=== PATIENT | male | born 1985 | race Asian ===

== ENCOUNTER 2023-07-15 16:11 | Inpatient (IN) | payer MEDICAID ==
[~2023-07-15] VITALS: Ht 170.2 cm; Wt 66.7 kg
[2023-07-15] MEDS ORDERED: ZOLPIDEM TARTRATE 10 MG TABLET PO PRN (22:45)
[2023-07-15 23:59] VITALS: BP 108/63; PULSE 88; RESP 16; TEMP 98; O2SAT 98
[2023-07-16] MEDS ORDERED: INFLUENZA VIRUS VACCINE QVS 2023-24 (6MO+)/PF 60 MCG/0.5 ML SYRINGE IM. ONE (02:15)
[2023-07-16] MEDS ORDERED: BACITRACIN 28 GM OINTMENT TP PRN (05:30)
[2023-07-16] MEDS ORDERED: OMEPRAZOLE 20 MG CAPSULE PO PRN (05:30)
[2023-07-16] MEDS ORDERED: ONDANSETRON HCL 4 MG TABLET PO PRN (05:30)
[2023-07-16] MEDS ORDERED: CloNIDine HCL 0.1 MG TABLET PO PRN (05:30)
[2023-07-16] MEDS ORDERED: DOCUSATE SODIUM 100 MG CAPSULE PO PRN (05:30)
[2023-07-16] MEDS ORDERED: PETROLATUM,WHITE 28 GM JELLY TP PRN (05:30)
[2023-07-16] MEDS ORDERED: ALBUTEROL SULFATE HFA 90 MCG/PUFF 8 GM INHALER IH PRN (05:30)
[2023-07-16] MEDS ORDERED: MAG HYDROX/ALUMINUM HYD/SIMETH ES 30 ML SUSPENSION UDCUP PO PRN (05:30)
[2023-07-16] MEDS ORDERED: IBUPROFEN 600 MG TABLET PO PRN (05:30)
[2023-07-16] MEDS ORDERED: BENZOCAINE/MENTHOL LOZENGE PO PRN (05:30)
[2023-07-16] MEDS ORDERED: LOPERAMIDE HCL 2 MG CAPSULE PO PRN (05:30)
[2023-07-16] MEDS ORDERED: ACETAMINOPHEN 325 MG TABLET PO PRN (05:30)
[2023-07-16] MEDS ORDERED: MAGNESIUM HYDROXIDE SUSPENSION 30 ML UDCUP PO PRN (05:30)
[2023-07-16] MEDS: LORazepam 2 MG TABLET PO PRN (07:56)
[2023-07-16] MEDS: HALOPERIDOL 5 MG TABLET PO PRN (07:56)
[2023-07-16 08:29] LABS: BASOPHILS % (AUTO) 0.4 % (0.0-2.0); HEMATOCRIT 41.7 % (41-53); HEMOGLOBIN 13.2 g/dL (13.5-17.5); LYMPHOCYTES # (AUTO) 1.6 K/uL (1.0-4.8); LYMPHOCYTES % (AUTO) 18.2 % (22.0-44.0); MEAN CORPUSCULAR HEMOGLOBIN 23.4 pg (26.0-34.0); MEAN CORPUSCULAR HGB CONC 31.6 G/dL (31.0-37.0); MEAN CORPUSCULAR VOLUME 74 fL (80-100); MONOCYTES # (AUTO) 0.3 K/uL (0.1-1.0); MONOCYTES % (AUTO) 3.4 % (2.0-9.0); NEUTROPHILS # (AUTO) 6.8 K/uL (1.8-7.7); PLATELET COUNT (AUTO) 284 K/uL (150-450); RED BLOOD CELL COUNT(AUTO) 5.63 MIL/uL (4.50-5.90); RED CELL DISTRIBUTION WIDTH 15.4 % (11.5-14.5); WHITE BLOOD COUNT (AUTO) 8.8 K/uL (4.5-11.0)
[2023-07-16 08:31] VITALS: BP 101/60; PULSE 94; RESP 16; TEMP 97.6; O2SAT 98
[2023-07-16 09:22] LABS: ALANINE AMINOTRANSFERASE 25 U/L (12-78); ALBUMIN 3.4 g/dL (3.4-5.0); ALKALINE PHOSPHATASE 62 U/L (46-116); ANION GAP 3 mmol/L (8-16); ASPARTATE AMINOTRANSFERASE 18 U/L (15-37); BILIRUBIN,TOTAL 0.4 mg/dL (0.1-1.0); CALCIUM, TOTAL 8.6 mg/dL (8.8-10.5); CARBON DIOXIDE 33 mmol/L (22-29); CHLORIDE 105 mmol/L (98-107); CHOL/HDL RATIO 2.4 (4.2-7.3); CHOLESTEROL 162 mg/dL (131-200); CREATININE 0.75 mg/dL (0.60-1.30); FREE T4 (FREE THYROXINE) 1.01 ng/dL (0.76-1.46); GLOMERULAR FILTR. RATE CALC > 60 mL/min (>60); GLUCOSE,RANDOM 77 mg/dL (70-110); HDL CHOLESTEROL 68 mg/dL (40-60); LDL CHOL (CALC.) 83 mg/dL (0-130); POTASSIUM 4.1 mmol/L (3.5-5.1); SODIUM SERUM 141 mmol/L (136-145); T4 (THYROXINE) 6.9 mcg/dL (4.7-13.3); THYROID STIMULATING HORMONE 0.22 uIU/mL (0.36-3.74); TOTAL PROTEIN, SERUM 6.6 g/dL (6.4-8.2); TRIGLYCERIDES 56 mg/dL (15-150); UREA NITROGEN, BLOOD 15 mg/dL (7-18)
[2023-07-16 10:26] LABS: RBC MORPHOLOGY COMMENT ABNORMAL RBC MORPH
[2023-07-16 11:22] LABS: HEMOGLOBIN A1C 4.9 % (3.8-5.6)
[2023-07-16] MEDS: QUEtiapine FUMARATE 300 MG TABLET PO SCH (21:13)
[2023-07-16 23:30] VITALS: RESP 18
[2023-07-17 16:14] VITALS: BP 106/61; PULSE 78; RESP 17; TEMP 98.2; O2SAT 98
[2023-07-17] MEDS: HALOPERIDOL 5 MG TABLET PO PRN (19:34)
[2023-07-17] MEDS: LORazepam 2 MG TABLET PO PRN (19:34)
[2023-07-17] MEDS: QUEtiapine FUMARATE 300 MG TABLET PO SCH (20:10)
[2023-07-17 21:09] VITALS: BP 103/65; PULSE 82; RESP 18; TEMP 98.1; O2SAT 99
[2023-07-18 08:07] VITALS: BP 121/55; PULSE 87; RESP 16; TEMP 97.6
[2023-07-18] MEDS: QUEtiapine FUMARATE 300 MG TABLET PO SCH (20:15)
[2023-07-18 20:30] VITALS: RESP 18
[2023-07-19 08:37] LABS: APPEARANCE,URINE HAZY (CLEAR); BILIRUBIN,URINE NEGATIVE (NEGATIVE); COLOR,URINE YELLOW (YELLOW); GLUCOSE, URINE (UA) NEGATIVE (NEGATIVE); KETONES,URINE NEGATIVE (NEGATIVE); LEUKOCYTE ESTERASE ,URINE SMALL (NEGATIVE); NITRATE,URINE NEGATIVE (NEGATIVE); OCCULT BLOOD,URINE NEGATIVE (NEGATIVE); PH,URINE 6.5 (5.0-8.0); PH,URINE DRUG SCREEN 6.5 (5.0-8.0); PROTEIN,URINE TRACE mg/dL (NEGATIVE); UROBILINOGEN,URINE <=1.0 mg/dL (<=1.0)
[2023-07-19 08:41] LABS: ALCOHOL, URINE DRUG SCREEN NEGATIVE (NEGATIVE); AMPHET/METH SCREEN,URINE NEGATIVE (NEGATIVE); BARBITURATE SCREEN, URINE NEGATIVE (NEGATIVE); BENZODIAZEPINES SCREEN,URINE NEGATIVE (NEGATIVE); CANNABINOID SCREEN,URINE NEGATIVE (NEGATIVE); COCAINE SCREEN,URINE NEGATIVE (NEGATIVE); METHADONE SCREEN, URINE NEGATIVE (NEGATIVE); OPIATE SCREEN,URINE NEGATIVE (NEGATIVE); PHENCYCLIDINE SCREEN,URINE NEGATIVE (NEGATIVE)
[2023-07-19 09:05] LABS: BACTERIA,URINE None Seen /HPF (None Seen); RBC,URINE None Seen /HPF (0-2); SQUAMOUS EPITHELIAL CELL,UR Moderate /LPF (None Seen)
[2023-07-19 09:06] LABS: CALCIUM OXALATE CRYSTALS,UR Rare /LPF (None Seen)
[2023-07-19 09:22] VITALS: BP 106/60; PULSE 83; RESP 18; TEMP 97.5; O2SAT 98
[2023-07-19] MEDS: QUEtiapine FUMARATE 300 MG TABLET PO SCH (20:56)
[2023-07-20 00:57] VITALS: BP 123/67; PULSE 88; RESP 18; TEMP 97
[2023-07-20 10:30] VITALS: BP 110/67; PULSE 107; RESP 17; TEMP 98.2; O2SAT 98
[2023-07-20 20:16] VITALS: BP 118/75; PULSE 98; RESP 18; TEMP 97.7; O2SAT 96
[2023-07-20] MEDS: QUEtiapine FUMARATE 300 MG TABLET PO SCH (21:56)
[2023-07-21 08:24] VITALS: BP 105/60; PULSE 87; RESP 18; TEMP 97.8; O2SAT 99
[2023-07-21] MEDS: LORazepam 2 MG TABLET PO PRN (09:07)
[2023-07-21] MEDS: HALOPERIDOL 5 MG TABLET PO PRN (09:07)
[2023-07-21 20:09] VITALS: BP 107/67; PULSE 76; RESP 2; TEMP 98.2; O2SAT 98
[2023-07-21] MEDS: QUEtiapine FUMARATE 300 MG TABLET PO SCH (20:54)
[2023-07-22 08:15] VITALS: BP 113/80; PULSE 77; RESP 18; TEMP 98.1; O2SAT 97
[2023-07-22] MEDS: QUEtiapine FUMARATE 300 MG TABLET PO SCH (20:43)
[2023-07-22 23:19] VITALS: BP 116/80; PULSE 76; RESP 18; TEMP 98.1; O2SAT 97
[2023-07-23 09:22] VITALS: BP 131/88; PULSE 118; RESP 18; TEMP 97.6; O2SAT 99
[2023-07-23 20:29] VITALS: BP 110/79; PULSE 80; RESP 19; TEMP 97.7; O2SAT 98
[2023-07-23] MEDS: QUEtiapine FUMARATE 300 MG TABLET PO SCH (20:34)
[2023-07-24] MEDS ORDERED: QUET300T2 PO (08:05)
[2023-07-24 08:38] VITALS: BP 125/90; PULSE 92; RESP 17; TEMP 97.8; O2SAT 98
== END 2023-07-24 09:30 | disposition home or self-care (01) | DRG 750 ==
LOC: B3A 22:40 → B2S 07-20 17:33
PROVIDERS: ADMIT Psychiatry & Neurology Psychiatry; ATTEND Psychiatry & Neurology Psychiatry
DX: F20.0 Paranoid schizophrenia (principal); F10.90 Alcohol use, unspecified, uncomplicated; F15.10 Other stimulant abuse, uncomplicated; F41.9 Anxiety disorder, unspecified; G47.00 Insomnia, unspecified; Z72.0 Tobacco use
CPT/HCPCS: 80053; 80061; 80307; 81001; 83036; 84436; 84439; 84443; 85025; 86592